=== PATIENT | male | born 1950 | race Caucasian/White ===

== ENCOUNTER 2022-10-27 06:55 | Day surgery (SDC) | payer MEDICARE, BC | END 2022-10-27 09:23 | disposition home or self-care (01) | LOC: JP.SDS 06:55 | PROVIDERS: ATTEND Surgery | DX: K94.23 Gastrostomy malfunction (principal); Z79.899 Other long term (current) drug therapy | CPT/HCPCS: 99203 ==

== ENCOUNTER 2024-05-27 12:43 | Emergency (ER) | payer MEDICARE, BC ==
[2024-05-27 14:43] LABS: BASOPHILS ABSOLUTE AUTO 0.03 K/uL (0.00-0.10); BASOPHILS PERCENT AUTO 0.5 % (0.1-1.3); EOSINOPHILS ABSOLUTE AUTO 0.07 K/uL (0.00-0.40); EOSINOPHILS PERCENT AUTO 1.2 % (0.0-5.4); HEMATOCRIT 39.1 % (38.4-49.7); HEMOGLOBIN 13.6 g/dL (12.9-16.9); IMMATURE GRAN ABSOLUTE AUTO 0.01 K/uL (0.00-0.23); IMMATURE GRAN PERCENT AUTO 0.2 % (0.0-0.7); LYMPHOCYTES PERCENT AUTO 15.7 % (11.4-47.7); MEAN CORPUSCULAR HEMOGLOBIN 32.5 pg (31.6-35.5); MEAN CORPUSCULAR HGB CONC 34.8 g/dL (31.6-35.5); MEAN CORPUSCULAR VOLUME 93.5 fL (81.4-99.0); MONOCYTES ABSOLUTE AUTO 0.49 K/uL (0.20-0.90); MONOCYTES PERCENT AUTO 8.6 % (3.3-12.6); NEUTROPHILS ABSOLUTE AUTO 4.22 K/uL (1.0-7.6); NEUTROPHILS PERCENT AUTO 73.8 % (40.0-78.1); PLATELET COUNT,PLT 218 K/uL (130-375); RED BLOOD CELL COUNT 4.18 M/uL (4.14-5.76); WHITE BLOOD CELL COUNT,WBC 5.7 K/uL (3.2-11.0)
[2024-05-27 14:58] LABS: ANION GAP 6.6 mmol/L (5.0-14.0); CALCIUM 8.6 mg/dL (8.5-10.1); CREATININE 0.9 mg/dL (0.8-1.3); EST CRCL DRUG DOSING (CG) 67.32 mL/min; MAGNESIUM 2.3 mg/dL (1.8-2.4); POTASSIUM,K 4.3 mmol/L (3.6-5.2)
[2024-05-27] MEDS: Sodium Chloride 0.9% 1,000 ML IV SCH (15:44)
[2024-05-27] MEDS: Iopamidol 755 Mg/ML 100 ML Bottle IV ONE (16:17)
[2024-05-27] MEDS: Sodium Chloride 0.9% 100 ML IV SCH (16:17)
== END 2024-05-27 17:42 | disposition home or self-care (01) ==
LOC: JP.ED 12:43
DX: H53.2 Diplopia (principal); Z79.899 Other long term (current) drug therapy; Z88.5 Allergy status to narcotic agent; Z91.048 Other nonmedicinal substance allergy status
CPT/HCPCS: 36415; 70450; 70496; 70498; 80048; 83735; 85025; 96360; 99285; J3490; J7030; Q9967

== ENCOUNTER 2024-08-22 11:46 | Emergency (ER) | payer MEDICARE, BC ==
[2024-08-22] MEDS ORDERED: Sodium Chloride 0.9% 10 ML Syringe FLUSH PRN (12:32)
[2024-08-22 12:46] LABS: BASOPHILS PERCENT AUTO 0.3 % (0.1-1.3); EOSINOPHILS PERCENT AUTO 0.3 % (0.0-5.4); HEMATOCRIT 42.4 % (38.4-49.7); HEMOGLOBIN 14.4 g/dL (12.9-16.9); IMMATURE GRAN ABSOLUTE AUTO 0.03 K/uL (0.00-0.23); IMMATURE GRAN PERCENT AUTO 0.4 % (0.0-0.7); LYMPHOCYTES ABSOLUTE AUTO 0.47 K/uL (0.8-3.3); LYMPHOCYTES PERCENT AUTO 6.2 % (11.4-47.7); MEAN CORPUSCULAR HEMOGLOBIN 32.8 pg (31.6-35.5); MEAN CORPUSCULAR VOLUME 96.6 fL (81.4-99.0); MONOCYTES PERCENT AUTO 7.9 % (3.3-12.6); NEUTROPHILS PERCENT AUTO 84.9 % (40.0-78.1); PLATELET COUNT,PLT 206 K/uL (130-375); RED BLOOD CELL COUNT 4.39 M/uL (4.14-5.76); WHITE BLOOD CELL COUNT,WBC 7.6 K/uL (3.2-11.0)
[2024-08-22 12:48] LABS: BASOPHILS ABSOLUTE AUTO 0.02 K/uL (0.00-0.10); EOSINOPHILS ABSOLUTE AUTO 0.02 K/uL (0.00-0.40)
[2024-08-22 13:03] LABS: ANION GAP 9.2 mmol/L (5.0-14.0); C-REACTIVE PROTEIN 5.27 mg/dL (<0.50); CALCIUM 9.3 mg/dL (8.5-10.1); CREATININE 0.9 mg/dL (0.8-1.3); EST CRCL DRUG DOSING (CG) 72.01 mL/min; POTASSIUM,K 4.1 mmol/L (3.6-5.2)
[2024-08-22 13:11] LABS: LACTIC ACID 1.1 mmol/L (0.4-2.0)
[2024-08-22] MEDS: Iopamidol 612 MG/ML 100 ML Bottle IV ONE (13:18)
[2024-08-22] MEDS: Sodium Chloride 0.9% 60 ML IV SCH (13:18)
[2024-08-22] MEDS: Sodium Chloride 0.9% 500 ML IV ONE ×2 (13:48→14:29)
[2024-08-22 14:12] LABS: CORONAVIRUS COVID-19 NAA NEGATIVE (NEGATIVE); INFLUENZA A NAA NEGATIVE (NEGATIVE); INFLUENZA B NAA NEGATIVE (NEGATIVE); RESPIRATORY SYNCYTIAL VIR NAA NEGATIVE (NEGATIVE)
== END 2024-08-22 15:07 | disposition home or self-care (01) ==
LOC: JP.ED 11:46
DX: R05.9 Cough, unspecified (principal); Z90.49 Acquired absence of other specified parts of digestive tract; Z79.899 Other long term (current) drug therapy; Z88.5 Allergy status to narcotic agent; Z91.048 Other nonmedicinal substance allergy status
CPT/HCPCS: 0241U; 36415; 70491; 70491-26; 71260; 71260-26; 80048; 83605; 84145; 85025; 86140; 87040; 99283; 99284; J3490; J7040; Q9967

== ENCOUNTER 2024-09-22 06:30 | Day surgery (SDC) | payer MEDICARE, BC ==
[2024-09-22] MEDS ORDERED: Propofol 200 MG/20 ML SDV ONE ×2 (07:13→08:01)
[2024-09-22] MEDS: Lactated Ringers 1,000 ML IV SCH (07:27)
== END 2024-09-22 09:55 | disposition home or self-care (01) ==
LOC: JP.SDS 06:30
PROVIDERS: ATTEND Surgery
DX: Z12.11 Encounter for screening for malignant neoplasm of colon (principal); R19.5 Other fecal abnormalities
CPT/HCPCS: G0121; J2704; J7120; 00811-QZ

== ENCOUNTER 2024-11-10 18:56 | Emergency (ER) | payer BC, MEDICARE, OTHER ==
[2024-11-10 20:09] LABS: BASOPHILS ABSOLUTE AUTO 0.03 K/uL (0.00-0.10); BASOPHILS PERCENT AUTO 0.3 % (0.1-1.3); EOSINOPHILS ABSOLUTE AUTO 0.05 K/uL (0.00-0.40); EOSINOPHILS PERCENT AUTO 0.4 % (0.0-5.4); HEMATOCRIT 40.9 % (38.4-49.7); IMMATURE GRAN ABSOLUTE AUTO 0.03 K/uL (0.00-0.23); IMMATURE GRAN PERCENT AUTO 0.3 % (0.0-0.7); LYMPHOCYTES ABSOLUTE AUTO 0.68 K/uL (0.8-3.3); LYMPHOCYTES PERCENT AUTO 5.7 % (11.4-47.7); MEAN CORPUSCULAR HEMOGLOBIN 32.2 pg (31.6-35.5); MEAN CORPUSCULAR HGB CONC 34.2 g/dL (31.6-35.5); MONOCYTES ABSOLUTE AUTO 0.85 K/uL (0.20-0.90); MONOCYTES PERCENT AUTO 7.2 % (3.3-12.6); NEUTROPHILS PERCENT AUTO 86.1 % (40.0-78.1); PLATELET COUNT,PLT 204 K/uL (130-375); RED BLOOD CELL COUNT 4.35 M/uL (4.14-5.76); WHITE BLOOD CELL COUNT,WBC 11.8 K/uL (3.2-11.0)
[2024-11-10 20:26] LABS: ANION GAP 15.4 mmol/L (5.0-14.0); C-REACTIVE PROTEIN 9.53 mg/dL (<0.50); CALCIUM 8.9 mg/dL (8.5-10.1); EST CRCL DRUG DOSING (CG) 62.7 mL/min; POTASSIUM,K 4.4 mmol/L (3.6-5.2)
[2024-11-10] MEDS: Sodium Chloride 0.9% 1,000 ML IV ONE (20:43)
== END 2024-11-10 22:05 | disposition home or self-care (01) ==
LOC: JP.ED 18:56
DX: B34.9 Viral infection, unspecified (principal); Z91.048 Other nonmedicinal substance allergy status; Z88.0 Allergy status to penicillin; Z88.5 Allergy status to narcotic agent; Z88.8 Allergy status to other drugs, medicaments and biological substances; Z79.899 Other long term (current) drug therapy; Z79.890 Hormone replacement therapy; Z87.891 Personal history of nicotine dependence
CPT/HCPCS: 36415; 71045; 71045-26; 80048; 83605; 84484; 85025; 86140; 87428-QW; 93005; 93010; 96360; 99283; 99284-25

== ENCOUNTER 2024-11-11 14:31 | Inpatient (IN) | payer MEDICARE ==
[2024-11-11 15:44] LABS: BASOPHILS ABSOLUTE AUTO 0.03 K/uL (0.00-0.10); BASOPHILS PERCENT AUTO 0.2 % (0.1-1.3); EOSINOPHILS ABSOLUTE AUTO 0.09 K/uL (0.00-0.40); EOSINOPHILS PERCENT AUTO 0.7 % (0.0-5.4); HEMATOCRIT 39.8 % (38.4-49.7); HEMOGLOBIN 13.5 g/dL (12.9-16.9); IMMATURE GRAN ABSOLUTE AUTO 0.07 K/uL (0.00-0.23); IMMATURE GRAN PERCENT AUTO 0.5 % (0.0-0.7); LYMPHOCYTES ABSOLUTE AUTO 0.57 K/uL (0.8-3.3); LYMPHOCYTES PERCENT AUTO 4.2 % (11.4-47.7); MEAN CORPUSCULAR HEMOGLOBIN 32.5 pg (31.6-35.5); MEAN CORPUSCULAR HGB CONC 33.9 g/dL (31.6-35.5); MEAN CORPUSCULAR VOLUME 95.9 fL (81.4-99.0); MONOCYTES ABSOLUTE AUTO 1.07 K/uL (0.20-0.90); MONOCYTES PERCENT AUTO 7.8 % (3.3-12.6); NEUTROPHILS ABSOLUTE AUTO 11.86 K/uL (1.0-7.6); NEUTROPHILS PERCENT AUTO 86.6 % (40.0-78.1); PLATELET COUNT,PLT 137 K/uL (130-375); RED BLOOD CELL COUNT 4.15 M/uL (4.14-5.76); WHITE BLOOD CELL COUNT,WBC 13.7 K/uL (3.2-11.0)
[2024-11-11] MEDS ORDERED: VANCOmycin 1 GM SDV IV SCH (16:00)
[2024-11-11 16:08] LABS: A/G RATIO 0.9 (1.2-2.2); ALANINE AMINOTRANSFERASE,ALT 42 U/L (12-78); ALBUMIN 3.4 g/dL (3.4-5.0); ALKALINE PHOSPHATASE 106 U/L (46-116); ASPARTATE AMNIOTRANSFERASE,AST 37 U/L (15-37); BILIRUBIN TOTAL 0.9 mg/dL (0.2-1.0); BLOOD UREA NITROGEN,BUN 24 mg/dL (7-18); C-REACTIVE PROTEIN 19.74 mg/dL (<0.50); CALCIUM 8.7 mg/dL (8.5-10.1); CARBON DIOXIDE,CO2 24 mmol/L (21-32); CHLORIDE,CL 101 mmol/L (100-108); ESTIMATED GFR 79 mL/min (>60); GLUCOSE RANDOM 149 mg/dL (74-106); POTASSIUM,K 4.7 mmol/L (3.6-5.2); PROTEIN TOTAL,TP 7.4 g/dL (6.4-8.2); SODIUM,NA 136 mmol/L (140-148)
[2024-11-11] MEDS: metroNIDAZOLE/Normal Saline 500 MG in Premix Bag 1 BAG IV SCH ×2 (16:10→23:55)
[2024-11-11 16:13] LABS: LACTIC ACID 1.8 mmol/L (0.4-2.0)
[2024-11-11] MEDS: Cefepime 1 GM in Sodium Chloride 0.9% 50 ML IV SCH (16:15)
[2024-11-11 16:17] LABS: ANION GAP 15.7 mmol/L (5.0-14.0)
[2024-11-11] MEDS: Lactated Ringers 1,000 ML IV SCH (16:34)
[2024-11-11] MEDS: VANCOmycin 1 GM in Sodium Chloride 0.9% 250 ML IV SCH (17:47)
[2024-11-11] MEDS: Acetaminophen Soln 650 MG/20.3 ML UD Cup GTUBE ONE (19:04)
[2024-11-11] MEDS: Ondansetron 4 MG/2 ML SDV IVPUSH ONE (19:10)
[2024-11-11] MEDS ORDERED: Polyethylene Glycol 3350 Powder 17 GM Packet GTUBE PRN (19:15)
[2024-11-11] MEDS ORDERED: MORPHINE 10 MG/5 ML GTUBE PRN (19:15)
[2024-11-11] MEDS ORDERED: Midodrine 5 MG Tab GTUBE SCH (19:30)
[2024-11-11] MEDS ORDERED: Ondansetron 4 MG Tab.DIS PO PRN (19:46)
[2024-11-11] MEDS ORDERED: Magnesium Hydroxide 400 MG/5 ML Susp 30 ML Cup GTUBE PRN (19:46)
[2024-11-11] MEDS ORDERED: Melatonin 3 MG Tab GTUBE PRN (19:46)
[2024-11-11] MEDS ORDERED: diphenhydrAMINE 50 MG/ML SDV IVPUSH PRN (19:54)
[2024-11-11] MEDS: Fludrocortisone 0.1 MG Tab GTUBE SCH (20:22)
[2024-11-11] MEDS: Enoxaparin 40 MG/0.4 ML Syringe SUBCUT SCH (20:22)
[2024-11-11] MEDS: Amitriptyline 25 MG Tab GTUBE SCH (20:22)
[2024-11-11] MEDS: rOPINIRole 0.5 MG Tab GTUBE SCH (20:23)
[2024-11-11] MEDS: traZODone 50 MG Tab GTUBE SCH (20:23)
[2024-11-11] MEDS: PILOCARPINE HCL 5 MG GTUBE SCH (20:23)
[2024-11-11] MEDS: Gabapentin 300 MG Cap GTUBE SCH (20:23)
[2024-11-11] MEDS: GLYCERIN EYEBOTH SCH (20:23)
[2024-11-11] MEDS: [UNRECOGNIZED DRUG - OTHER] EYEBOTH SCH (20:23)
[2024-11-11] MEDS: Carbidopa/Levodopa 25-100 MG Tab GTUBE SCH (20:23)
[2024-11-11] MEDS: NAPHAZOLINE HCL EYEBOTH SCH (20:23)
[2024-11-11] MEDS: cefTRIAXone 1 GM in Sodium Chloride 0.9% 50 ML IV SCH (20:49)
[2024-11-11] MEDS: Sodium Chloride 0.9% 1,000 ML IV SCH (20:50)
[2024-11-11] MEDS ORDERED: [UNRECOGNIZED DRUG - OTHER] GTUBE SCH (21:00)
[2024-11-11] MEDS ORDERED: FIBER GTUBE SCH (21:00)
[2024-11-11] MEDS ORDERED: NUTRITIONAL SUPPLEMENT GTUBE SCH (21:00)
[2024-11-11] MEDS ORDERED: LACTOSE REDUCED FOOD GTUBE SCH (21:00)
[2024-11-12 01:14] LABS: APPEARANCE,URINE CLEAR (CLEAR); BILIRUBIN,URINE NEGATIVE (NEGATIVE); COLOR,URINE YELLOW (YELLOW); GLUCOSE,URINE NEGATIVE (NEGATIVE); KETONES,URINE NEGATIVE (NEGATIVE); LEUKOCYTE ESTERASE,URINE NEGATIVE (NEGATIVE); NITRITE,URINE NEGATIVE (NEGATIVE); OCCULT BLOOD,URINE NEGATIVE (NEGATIVE); PROTEIN,URINE 30 mg/dL (NEGATIVE)
[2024-11-12 02:24] LABS: AMORPHOUS SEDIMENT,URINE FEW; BACTERIA,URINE FEW; EPITHELIAL CELLS,URINE FEW; MUCUS,URINE NOT SEEN; RBC,URINE 0-5 (0-5); WBC,URINE 0-5 (0-5)
[2024-11-12 05:54] LABS: HEMATOCRIT 35.1 % (38.4-49.7); HEMOGLOBIN 11.8 g/dL (12.9-16.9); MEAN CORPUSCULAR HEMOGLOBIN 32.1 pg (31.6-35.5); MEAN CORPUSCULAR HGB CONC 33.6 g/dL (31.6-35.5); MEAN CORPUSCULAR VOLUME 95.4 fL (81.4-99.0); RED BLOOD CELL COUNT 3.68 M/uL (4.14-5.76); WHITE BLOOD CELL COUNT,WBC 12.4 K/uL (3.2-11.0)
[2024-11-12 06:22] LABS: ANION GAP 13.1 mmol/L (5.0-14.0); CALCIUM 8.4 mg/dL (8.5-10.1); CREATININE 0.8 mg/dL (0.8-1.3); EST CRCL DRUG DOSING (CG) 78.38 mL/min; POTASSIUM,K 4.1 mmol/L (3.6-5.2)
[2024-11-12] MEDS ORDERED: Polyethylene Glycol 3350 Powder 17 GM Packet GTUBE PRN (07:08)
[2024-11-12] MEDS: Ondansetron 4 MG/2 ML SDV IV PRN (07:49)
[2024-11-12] MEDS ORDERED: Midodrine 5 MG Tab GTUBE SCH (08:00)
[2024-11-12] MEDS: Midodrine 5 MG Tab GTUBE SCH (08:18)
[2024-11-12] MEDS: Levothyroxine 50 MCG Tab GTUBE SCH (08:18)
[2024-11-12] MEDS: Carbidopa/Levodopa 25-100 MG Tab GTUBE SCH (08:18)
[2024-11-12] MEDS: LORazepam 2 MG/ML SDV IVPUSH PRN (09:12)
[2024-11-12] MEDS: rOPINIRole 1 MG Tab GTUBE SCH (09:23)
[2024-11-12] MEDS: rOPINIRole 0.5 MG Tab GTUBE SCH (09:24)
[2024-11-12] MEDS: Morphine 10 MG/0.5 ML Oral Syringe GTUBE PRN (09:35)
[2024-11-12] MEDS: Lactobacillus Rhamnosus GG (Probiotic) Cap GTUBE SCH (09:38)
[2024-11-12] MEDS: Gabapentin 100 MG Cap GTUBE SCH (09:38)
[2024-11-12] MEDS: Hypromellose 0.3% Ophth Soln 15 ML Bottle EYEBOTH SCH (10:32)
[2024-11-12] MEDS: PILOCARPINE 5 MG GTUBE SCH (10:34)
[2024-11-12] MEDS: Polyethylene Glycol 3350 Powder 17 GM Packet GTUBE PRN (11:00)
[2024-11-12] MEDS: Escitalopram 10 MG Tab GTUBE SCH (12:00)
[2024-11-13 06:00] LABS: HEMATOCRIT 33.6 % (38.4-49.7); HEMOGLOBIN 11.5 g/dL (12.9-16.9); MEAN CORPUSCULAR HEMOGLOBIN 32.2 pg (31.6-35.5); MEAN CORPUSCULAR HGB CONC 34.2 g/dL (31.6-35.5); MEAN CORPUSCULAR VOLUME 94.1 fL (81.4-99.0); RED BLOOD CELL COUNT 3.57 M/uL (4.14-5.76); WHITE BLOOD CELL COUNT,WBC 9.9 K/uL (3.2-11.0)
[2024-11-13 06:16] LABS: C-REACTIVE PROTEIN 12.19 mg/dL (<0.50); CALCIUM 8.3 mg/dL (8.5-10.1); CREATININE 0.7 mg/dL (0.8-1.3); EST CRCL DRUG DOSING (CG) 89.57 mL/min; POTASSIUM,K 3.7 mmol/L (3.6-5.2)
[2024-11-13 06:21] LABS: ANION GAP 13.7 mmol/L (5.0-14.0)
[2024-11-13] MEDS: Fluconazole 100 MG Tab PO SCH (08:14)
[2024-11-13] MEDS: Doxycycline 100 MG in Sodium Chloride 0.9% 100 ML IV SCH (13:16)
[2024-11-13] MEDS: Ketorolac 30 MG/ML SDV IVPUSH ONE (17:36)
[2024-11-13] MEDS: cefTRIAXone 2 GM in Sodium Chloride 0.9% 50 ML IV SCH (20:01)
[2024-11-13] MEDS: PILOCARPINE 5 MG GTUBE SCH (21:09)
[2024-11-14] MEDS: Bismuth Subsalicylate 262 MG/15 ML Susp 236 ML Bottle GTUBE PRN (01:22)
[2024-11-14 06:06] LABS: HEMATOCRIT 34.3 % (38.4-49.7); HEMOGLOBIN 11.6 g/dL (12.9-16.9); MEAN CORPUSCULAR HEMOGLOBIN 32.1 pg (31.6-35.5); MEAN CORPUSCULAR HGB CONC 33.8 g/dL (31.6-35.5); RED BLOOD CELL COUNT 3.61 M/uL (4.14-5.76); WHITE BLOOD CELL COUNT,WBC 6.4 K/uL (3.2-11.0)
[2024-11-14] MEDS: Loperamide 2 MG Cap PO PRN (09:15)
[2024-11-14] MEDS ORDERED: Sodium Chloride 0.9% 10 ML Syringe IV PRN (10:26)
== END 2024-11-14 11:37 | disposition home or self-care (01) | DRG 602 ==
LOC: JP.ED 14:31 → JP.MS 18:54
PROVIDERS: ADMIT Registered Nurse; ATTEND Internal Medicine
DX: L03.011 Cellulitis of right finger (principal); J18.9 Pneumonia, unspecified organism; L03.113 Cellulitis of right upper limb; Z66 Do not resuscitate; G20.A1 Parkinson's disease without dyskinesia, without mention of fluctuations; F32.A Depression, unspecified; Z96.649 Presence of unspecified artificial hip joint; Z88.1 Allergy status to other antibiotic agents; Z88.8 Allergy status to other drugs, medicaments and biological substances; Z88.5 Allergy status to narcotic agent; Z79.899 Other long term (current) drug therapy; Z79.891 Long term (current) use of opiate analgesic; Z98.890 Other specified postprocedural states; Z90.89 Acquired absence of other organs; Z98.49 Cataract extraction status, unspecified eye; Z87.891 Personal history of nicotine dependence; Z93.1 Gastrostomy status
CPT/HCPCS: 36415; 71045; 71045-26; 73130-26-RT; 73130-RT; 80048; 80053; 80202; 81001; 83605; 84145; 84484; 85025; 85027; 86140; 87040; 93005; 93010; 96365; 96368; 99222; 99231; 99232; 99238; 99284-25; A9270-GY; J0692; J0696; J1650; J1836; J1885; J2060; J2405; J3490; J7030; J7050; J7120

== ENCOUNTER 2024-11-30 15:45 | Emergency (ER) | payer MEDICARE ==
[2024-11-30 16:53] LABS: BASOPHILS ABSOLUTE AUTO 0.05 K/uL (0.00-0.10); BASOPHILS PERCENT AUTO 0.9 % (0.1-1.3); EOSINOPHILS ABSOLUTE AUTO 0.07 K/uL (0.00-0.40); EOSINOPHILS PERCENT AUTO 1.2 % (0.0-5.4); HEMATOCRIT 41.4 % (38.4-49.7); HEMOGLOBIN 13.9 g/dL (12.9-16.9); IMMATURE GRAN PERCENT AUTO 0.2 % (0.0-0.7); LYMPHOCYTES ABSOLUTE AUTO 0.63 K/uL (0.8-3.3); MEAN CORPUSCULAR HGB CONC 33.6 g/dL (31.6-35.5); MEAN CORPUSCULAR VOLUME 95.2 fL (81.4-99.0); MONOCYTES ABSOLUTE AUTO 0.48 K/uL (0.20-0.90); MONOCYTES PERCENT AUTO 8.4 % (3.3-12.6); NEUTROPHILS ABSOLUTE AUTO 4.49 K/uL (1.0-7.6); NEUTROPHILS PERCENT AUTO 78.3 % (40.0-78.1); PLATELET COUNT,PLT 261 K/uL (130-375); RED BLOOD CELL COUNT 4.35 M/uL (4.14-5.76); WHITE BLOOD CELL COUNT,WBC 5.7 K/uL (3.2-11.0)
[2024-11-30 16:59] LABS: BASE EXCESS VENOUS 4.1 mm/L; BICARBONATE,VENOUS 27.9 mmol/L; CARBOXYHEMOGLOBIN 2.9 % (0.0-1.6); METHEMOGLOBIN 0.5 %; O2 SATURATION VENOUS 79.6; OXYHEMOGLOBIN 76.9 %; PCO2 VENOUS 40.4 mm/Hg; PH,VENOUS 7.453 (7.350-7.450); PO2 VENOUS 43.7 mm/Hg; TOTAL HEMOGLOBIN 14.4 g/dL (13.5-18.0)
[2024-11-30 17:04] LABS: IMMATURE GRAN ABSOLUTE AUTO 0.01 K/uL (0.00-0.23)
[2024-11-30] MEDS: Sodium Chloride 0.9% 1,000 ML IV ONE (17:14)
[2024-11-30 17:20] LABS: A/G RATIO 0.9 (1.2-2.2); ALANINE AMINOTRANSFERASE,ALT 29 U/L (12-78); ALBUMIN 3.4 g/dL (3.4-5.0); ALKALINE PHOSPHATASE 101 U/L (46-116); ANION GAP 5.4 mmol/L (5.0-14.0); ASPARTATE AMNIOTRANSFERASE,AST 20 U/L (15-37); BILIRUBIN TOTAL 0.9 mg/dL (0.2-1.0); BLOOD UREA NITROGEN,BUN 21 mg/dL (7-18); CARBON DIOXIDE,CO2 30 mmol/L (21-32); CHLORIDE,CL 106 mmol/L (100-108); CREATININE 0.9 mg/dL (0.8-1.3); EST CRCL DRUG DOSING (CG) 69.67 mL/min; ESTIMATED GFR 90 mL/min (>60); GLUCOSE RANDOM 96 mg/dL (74-106); POTASSIUM,K 4.3 mmol/L (3.6-5.2); PROTEIN TOTAL,TP 7.2 g/dL (6.4-8.2); SODIUM,NA 141 mmol/L (140-148)
[2024-11-30 18:29] LABS: APPEARANCE,URINE SLIGHTLY CLOUDY (CLEAR); BILIRUBIN,URINE NEGATIVE (NEGATIVE); COLOR,URINE YELLOW (YELLOW); GLUCOSE,URINE NEGATIVE (NEGATIVE); KETONES,URINE NEGATIVE (NEGATIVE); LEUKOCYTE ESTERASE,URINE NEGATIVE (NEGATIVE); NITRITE,URINE NEGATIVE (NEGATIVE); OCCULT BLOOD,URINE NEGATIVE (NEGATIVE); PH,URINE 8.5 (5.0-8.0); PROTEIN,URINE NEGATIVE (NEGATIVE); UROBILINOGEN,URINE 0.2 EU/dL (0.2-1.0)
[2024-11-30 18:36] LABS: RBC,URINE 0-5 (0-5)
[2024-11-30 18:37] LABS: AMORPHOUS SEDIMENT,URINE MODERATE; BACTERIA,URINE RARE; EPITHELIAL CELLS,URINE RARE; MUCUS,URINE NOT SEEN; WBC,URINE 0-5 (0-5)
== END 2024-11-30 18:47 | disposition home or self-care (01) ==
LOC: JP.ED 15:45
DX: E86.0 Dehydration (principal); Z88.6 Allergy status to analgesic agent; Z88.0 Allergy status to penicillin; Z88.1 Allergy status to other antibiotic agents; Z79.899 Other long term (current) drug therapy
CPT/HCPCS: 36415; 80053; 81001; 82803; 83605; 84145; 85025; 86140; 87428-QW; 96360; 99284-25